=== PATIENT | male | born 1970 | race Caucasian/White ===

== ENCOUNTER 2017-10-22 09:24 | Emergency (ER) | payer OTHER ==
[~2017-10-22] VITALS: Ht 182.9 cm; Wt 79.4 kg
--- NOTE | 2017-10-22 09:30 | NUR ---
PT IS IN ROOM #2B. DR ODONNELL EVALUATED THE PT.
[2017-10-22] MEDS ORDERED: WARF5TAB77 PO (09:34)
[2017-10-22] MEDS: LIDOCAINE HCL 1% 20 ML VIAL IJ ONE ×2 (09:56→10:00)
[2017-10-22] MEDS ORDERED: LIDOCAINE HCL 2% 20 ML VIAL ONE (10:05)
--- NOTE | 2017-10-22 10:30 | NUR ---
PT WAS D/C TO HOME. D/C INSTRUCTIONS GIVEN TO THE PT BY DR ODONNELL. DRESSING IS INTACT. NO BLEEDING. GAIT IS STABLE.
[2017-10-22 10:31] VITALS: BP 136/78
== END 2017-10-22 10:32 | disposition home or self-care (01) ==
LOC: ER 09:24
DX: S81.011A Laceration without foreign body, right knee, initial encounter (principal); Z79.01 Long term (current) use of anticoagulants; W20.8XXA Other cause of strike by thrown, projected or falling object, initial encounter; Y93.89 Activity, other specified; Y92.89 Other specified places as the place of occurrence of the external cause; Y99.8 Other external cause status
CPT/HCPCS: A4217; A4663; J3490